=== PATIENT | male | born 1985 | race American Indian/Alaskan Native ===

== ENCOUNTER 2018-04-05 17:36 | Emergency (ER) | payer OTHER ==
--- NOTE | 2018-04-05 19:05 | XRay Report ---
FINAL REPORT EXAM: XR SHOULDER 2+V LT HISTORY: lt shoulder pain TECHNIQUE: 3 views of left shoulder. PRIORS: None. FINDINGS: Mild degenerative changes in the AC joint. No apparent fracture or dislocation. Soft tissues grossly unremarkable. IMPRESSION: 1. No acute osseous abnormality. 2. Degenerative changes.
--- NOTE | 2018-04-05 19:07 | XRay Report ---
FINAL REPORT EXAM: XR SPINE CERVICAL 2-3V HISTORY: cervical pain TECHNIQUE: AP, lateral, swimmer's and odontoid views of cervical spine. PRIORS: None. FINDINGS: No loss of height or gross malalignment of cervical vertebral bodies. No obvious osseous destruction. Cervical disc spaces maintained. Prevertebral soft tissues grossly unremarkable. Metallic BB density projects over left parasymphyseal mandible. IMPRESSION: 1. No acute osseous abnormality.
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
[2018-04-05] MEDS ORDERED: MOTRIN PO ONE (21:40)
[2018-04-05 21:53] VITALS: BP 120/60
== END 2018-04-05 21:54 | disposition home or self-care (01) ==
LOC: ED 17:36
DX: S16.1XXA Strain of muscle, fascia and tendon at neck level, initial encounter (principal); R51 Headache; F17.200 Nicotine dependence, unspecified, uncomplicated; V49.49XA Driver injured in collision with other motor vehicles in traffic accident, initial encounter; Y93.89 Activity, other specified; Y92.89 Other specified places as the place of occurrence of the external cause; Y99.8 Other external cause status
CPT/HCPCS: 72040; 99283